=== PATIENT | male | born 1980 | race Caucasian/White ===

== ENCOUNTER 2016-09-30 15:29 | Emergency (ER) | payer OTHER ==
[~2016-09-30] VITALS: Ht 162.6 cm; Wt 76.3 kg
[2016-09-30 15:37] VITALS: BP 135/93
== END 2016-09-30 19:19 | disposition home or self-care (01) ==
LOC: ED 15:29
DX: S61.212A Laceration without foreign body of right middle finger without damage to nail, initial encounter (principal); W45.8XXA Other foreign body or object entering through skin, initial encounter; Y93.89 Activity, other specified; Y92.89 Other specified places as the place of occurrence of the external cause; Y99.8 Other external cause status
CPT/HCPCS: 90715; A4570